=== PATIENT | male | born 1995 | race Caucasian/White ===

== ENCOUNTER 2017-05-12 06:56 | Emergency (ER) | payer SELFPAY | END 2017-05-12 08:45 | disposition home or self-care (01) | LOC: ER1 06:56 | DX: R07.89 Other chest pain (principal); J98.11 Atelectasis | CPT/HCPCS: 71020; 96372; 99283; J1885 ==

== ENCOUNTER 2021-09-09 19:18 | Emergency (ER) | payer SELFPAY ==
[2021-09-09] MEDS ORDERED: CEPHALEXIN500 M1 PO (20:06)
== END 2021-09-09 20:12 | disposition home or self-care (01) ==
LOC: ER1 19:18
DX: S01.21XA Laceration without foreign body of nose, initial encounter (principal); W22.8XXA Striking against or struck by other objects, initial encounter
CPT/HCPCS: 12011; 99283